=== PATIENT | male | born 1965 | race Hispanic/Latino ===

== ENCOUNTER 2019-08-06 10:17 | Inpatient (IN) | payer SELFPAY ==
[2019-08-06 10:55] LABS: #Basophils 0.1 thou/uL (0.0-0.2); #Eosinphils 0.1 thou/uL (0.0-0.7); #Lymphocytes 2.1 thou/uL (1.20-3.40); #Monocytes 0.7 thou/uL (0.11-0.59); #Neutrophils 3.6 thou/uL (1.40-6.50); %Basophils 0.8 % (0.0-1.0); %Eosinophils 1.9 % (0.0-10.0); %Lymphocytes 31.9 % (21.0-51.0); %Neutrophils 54.3 % (42.0-75.0); Hemoglobin 15.8 g/dL (14.0-18.0); Mean Corpuscular HGB CONC 34.1 g/dL (32.0-36.0); Mean Corpuscular Hemoglobin 33.5 pg (27.0-31.0); Mean Corpuscular Volume 98.2 fL (78.0-98.0); Mean Platelet Volume 9.1 fL (7.4-10.4); Platelet Count 185 thou/uL (130-400); RBC Distribution Width 11.4 % (11.5-14.5); Red Blood Cell (RBC) Count 4.72 mill/uL (4.70-6.10); White Blood Cell (WBC) Count 6.6 thou/uL (4.8-10.8)
[2019-08-06 10:58] LABS: INR-International Normal Ratio 0.9; PTT 26.7 SEC (22.9-36.1); Prothrombin Time 12.1 sec (12.0-14.7)
[2019-08-06] MEDS ORDERED: Morphine 4 MG/ML VIAL ONE ×2 (11:07→12:38)
[2019-08-06 11:22] LABS: ALT (SGPT) 34 U/L (8-55); AST (SGOT) 39 U/L (5-34); Albumin 4.3 g/dL (3.5-5.0); Alkaline Phosphatase 127 U/L (40-110); Anion Gap 14 mmol/L (10-20); BUN (Urea Nitrogen) 6 mg/dL (8.4-25.7); Bilirubin, Total 0.7 mg/dL (0.2-1.2); CK (CPK) 95 U/L (30-200); Calc. Creatinine Clearance 0 mL/min (70-130); Calcium 8.8 mg/dL (7.8-10.44); Carbon Dioxide 24 mmol/L (22-29); Chloride 102 mmol/L (98-107); Estimated GFR-MDRD Greater than 90; Globulin 3.6 g/dL (2.4-3.5); Glucose 220 mg/dL (70-105); Potassium 3.4 mmol/L (3.5-5.1); Protein, Total 7.9 g/dL (6.0-8.3); Sodium 137 mmol/L (136-145)
[2019-08-06 12:13] LABS: Bilirubin Negative (Negative); Blood, Urine Negative (Negative); Glucose, Urine (Dipstick) 100 mg/dL (Negative); Leukocyte Negative (Negative); Nitrite Negative (Negative); Protein, Urine (Dipstick) Negative (Neg-Trace); Urobilinogen 0.2 mg/dL (Less than 2)
[2019-08-06 12:20] LABS: Clarity Clear (Clear)
[2019-08-06] MEDS ORDERED: diphenhydrAMINE 50 MG/ML VIAL IVP PRN (13:45)
[2019-08-06] MEDS ORDERED: Acetaminophen 500 MG TAB PO PRN (13:45)
[2019-08-06] MEDS ORDERED: Ondansetron PF 4 MG/2 ML Vial IVP PRN (13:45)
[2019-08-06] MEDS ORDERED: TETANUS AND DIPHTHERIA TOX/PF 0.5 ML DISP.SYRIN IM ONE (13:45)
[2019-08-06] MEDS ORDERED: HOLD ALL ANTI-COAGULANTS/ANTI-PLATELETS/NSAIDS PO SCH (13:45)
[2019-08-06] MEDS ORDERED: HYDROcodone/Acetaminophen 10/325 mg Tablet PO PRN (14:17)
[2019-08-06] MEDS ORDERED: Lorazepam 2 MG/ML VIAL SLOW IVP PRN (14:22)
[2019-08-06] MEDS ORDERED: Morphine 4 MG/ML VIAL SLOW IVP PRN (14:22)
[2019-08-06] MEDS ORDERED: Lorazepam 2 MG/ML VIAL ONE (14:29)
[2019-08-06] MEDS ORDERED: Labetalol HCl 100 MG/20 ML VIAL ONE (14:29)
[2019-08-06] MEDS ORDERED: Crotalidae Polyvlnt Antivenin 4 GM in Sodium Chloride 0.9% 250 ML 250 ML IVPB SCH (14:30)
--- NOTE | 2019-08-06 14:30 | PDOC.HHP ---
Hospitalist HPI - History of Present Illness Snakebite History of Present Illness: This patient is a 54-year-old male who presented to the emergency department. The patient was pulling some grass this morning when he was bitten on the left fifth finger by a copperhead. That occurred at approximately 1030 this morning. That was about 4 hours ago. Patient initially had some discomfort and swelling in his finger. It has subsequently extended onto the surface of the hand. He therefore presented to the emergency department. Currently he denies significant pain. He does admit that he is very scared and anxious about the situation. He denies any nausea vomiting or neurologic symptoms. ED Course: In the emergency department the patient was deemed to have a moderate level envenomation. He was given 6 units of CroFab. He is also been given morphine a couple of times. He appears to have slight extension of the edema and inflammation be on the originally marked area. Hospitalist ROS - Review of Systems Constitutional: denies: fever, chills Cardiovascular: denies: chest pain, palpitations Gastrointestinal: denies: nausea, vomiting, abdominal pain Neurological: denies: weakness, numbness All other systems reviewed; all pertinent +/- noted in HPI/Subj Hospitalist History - Past Medical History Source: patient (No past medical history) - Past Surgical History Past Surgical History: reports: no pertinent history - Family History Family History: reports: no pertinent history - Social History Smoking Status: Never smoker Alcohol: reports: Occassional (Patient drinks 3-4 beers most days. He states he will go a month at a time without drinking at all.) Drugs: reports: none Living Situation: With Family Activity level: independent ambulation Other Social History: Patient reports he is in [place] but not here. - Exam General Appearance: NAD, awake alert Heart: RRR, no murmur, no gallops Heart - other findings: Tachycardia Respiratory: CTAB, no wheezes, no rales, no ronchi, normal chest expansion, no tachypnea, normal percussion Gastrointestinal: soft, non-tender, non-distended, normal bowel sounds, no palpable masses, no hepatomegaly, no splenomegaly, no bruit Extremities - other findings: Left fifth finger and dorsum of the hand gen. edema. No erythema Skin - other findings: Single puncture wound to the lateral left fifth finger Neurological: no focal deficits Musculoskeletal: normal tone Psychiatric: normal affect, normal behavior, A&O x 3 Hospitalist Results - Labs Result Diagrams: 08/06/19 10:42 08/06/19 10:42 Lab results: WBC 6.6 thou/uL (4.8-10.8) 08/06/19 10:42 Hgb 15.8 g/dL (14.0-18.0) 08/06/19 10:42 Hct 46.4 % (42.0-52.0) 08/06/19 10:42 MCV 98.2 fL (78.0-98.0) H 08/06/19 10:42 Plt Count 185 thou/uL (130-400) 08/06/19 10:42 Neutrophils % 54.3 % (42.0-75.0) 08/06/19 10:42 Sodium 137 mmol/L (136-145) 08/06/19 10:42 Potassium 3.4 mmol/L (3.5-5.1) L 08/06/19 10:42 Chloride 102 mmol/L (98-107) 08/06/19 10:42 Carbon Dioxide 24 mmol/L (22-29) 08/06/19 10:42 BUN 6 mg/dL (8.4-25.7) L 08/06/19 10:42 Creatinine 0.80 mg/dL (0.7-1.3) 08/06/19 10:42 Glucose 220 mg/dL (70-105) H 08/06/19 10:42 Calcium 8.8 mg/dL (7.8-10.44) 08/06/19 10:42 Total Bilirubin 0.7 mg/dL (0.2-1.2) 08/06/19 10:42 AST 39 U/L (5-34) H 08/06/19 10:42 ALT 34 U/L (8-55) 08/06/19 10:42 Alkaline Phosphatase 127 U/L (40-110) H 08/06/19 10:42 Creatine Kinase 95 U/L (30-200) 08/06/19 10:42 Serum Total Protein 7.9 g/dL (6.0-8.3) 08/06/19 10:42 Albumin 4.3 g/dL (3.5-5.0) 08/06/19 10:42 Urine Ketones Negative mg/dL (Negative) 08/06/19 11:35 Urine Blood Negative (Negative) 08/06/19 11:35 Urine Nitrite Negative (Negative) 08/06/19 11:35 Ur Leukocyte Esterase Negative (Negative) 08/06/19 11:35 Hospitalist H&P A/P - Problem (1) Snake envenomation Code(s): T63.001A - TOXIC EFFECT OF UNSP SNAKE VENOM, ACCIDENTAL, INIT Status : Acute (2) Elevated blood pressure, situational Code(s): R03.0 - ELEVATED BLOOD-PRESSURE READING, W/O DIAGNOSIS OF HTN Status : Acute (3) Tachycardia Code(s): R00.0 - TACHYCARDIA, UNSPECIFIED Status: Acute - Plan Plan: This patient was started on the CroFab in the emergency department. Based on the guidelines he was deemed to have a moderate envenomation and was given 6 vials. We will continue with the snakebite order set. The patient is admittedly very scared and anxious about the situation. I believe that is driving his blood pressure and his heart rate. Have discussed with the ER physician. Asked him to order Lorazepam and labetalol. I suspect we will be able to get the blood pressure down and place him on telemetry and observation. We will continue with PRN anxiolytics and opioids for pain.
[2019-08-06] MEDS ORDERED: Ketorolac Tromethamine 30 MG/ML VIAL ONE (16:21)
[2019-08-06 17:34] VITALS: BMI 29.5
[2019-08-06] MEDS: Famotidine 20 MG TAB PO SCH (20:47)
[2019-08-06] MEDS ORDERED: Ketorolac Tromethamine 30 MG/ML VIAL IVP SCH (23:59)
[2019-08-07 04:32] LABS: #Basophils 0.1 thou/uL (0.0-0.2); #Eosinphils 0.3 thou/uL (0.0-0.7); #Lymphocytes 1.4 thou/uL (1.20-3.40); #Monocytes 0.7 thou/uL (0.11-0.59); %Basophils 0.7 % (0.0-1.0); %Eosinophils 3.5 % (0.0-10.0); %Lymphocytes 18.8 % (21.0-51.0); %Monocytes 8.9 % (0.0-10.0); %Neutrophils 68.1 % (42.0-75.0); Hemoglobin 14.4 g/dL (14.0-18.0); Mean Corpuscular HGB CONC 33.1 g/dL (32.0-36.0); Mean Corpuscular Hemoglobin 33.4 pg (27.0-31.0); Mean Platelet Volume 9.2 fL (7.4-10.4); Platelet Count 183 thou/uL (130-400); RBC Distribution Width 11.5 % (11.5-14.5); Red Blood Cell (RBC) Count 4.32 mill/uL (4.70-6.10); White Blood Cell (WBC) Count 7.3 thou/uL (4.8-10.8)
[2019-08-07 04:39] LABS: PTT 28.3 SEC (22.9-36.1); Prothrombin Time 12.8 sec (12.0-14.7)
[2019-08-07] MEDS: Gentamicin Sulfate 80 MG in Premix Bag 1 BAG IVPB SCH ×3 (06:14→20:16)
[2019-08-07] MEDS: Vancomycin 1.5 GRAM/300 ML BAG 1.5 GM in Premix Bag 1 BAG IVPB SCH ×2 (07:26→17:31)
[2019-08-07] MEDS ORDERED: diphenhydrAMINE 25 MG CAP PO PRN (08:01)
--- NOTE | 2019-08-07 08:46 | PDOC.HOSPP ---
- Subjective Encounter Date: 08/07/19 Encounter Time: 08:15 Subjective: Patient seen and examined for Snake bite to Left hand. Pain 5/10. Swelling improving. No fever/N/V. No new complaints. No overnight events - Objective Vital Signs & Weight: Vital Signs (12 hours) Temp Pulse Resp BP Pulse Ox 08/07/19 04:00 98.7 F 80 16 150/71 H 95 08/07/19 00:00 98.6 F 78 18 152/90 H 96 Weight Weight 183 lb Result Diagrams: 08/07/19 04:15 08/06/19 10:42 EKG Reviewed by me: Yes (Tele SR) Hospitalist ROS - Review of Systems Respiratory: denies: cough, dry, shortness of breath, hemoptysis, SOB with excertion, pleuritic pain, sputum, wheezing, other Cardiovascular: denies: chest pain, palpitations, orthopnea, paroxysmal noc. dyspnea, edema, light headedness, other Gastrointestinal: denies: nausea, vomiting, abdominal pain, diarrhea, constipation, melena, hematochezia, other - Medication Medications: Active Medications Generic Name Dose Route Start Last Admin Trade Name Freq PRN Reason Stop Dose Admin Famotidine 20 mg 08/06/19 21:00 08/06/19 20:47 Pepcid PO 20 mg BID ADOLPH Administration Vancomycin HCl 1.5 gm/ Device 300 mls @ 200 mls/hr 08/07/19 06:00 08/07/19 07 :26 IVPB 300 mls 0600,1800 ADOLPH Administration Gentamicin Sulfate 80 mg/ 100 mls @ 100 mls/hr 08/07/19 06:00 08/07/19 06:14 Device IVPB 100 mls Q8HR ADOLPH Administration - Exam General Appearance: NAD Heart: RRR, no gallops, no rubs, normal peripheral pulses Respiratory: no wheezes, no rales, no ronchi, normal chest expansion Gastrointestinal: soft, non-tender, non-distended, normal bowel sounds Extremities: no cyanosis Extremities - other findings: Left hand dressing +, ROM ok Neurological: cranial nerve grossly intact, normal sensation to touch, no weakness, no new deficit Psychiatric: normal affect, A&O x 3 Hosp A/P - Plan DVT proph w/SCDs Snake envenomation/bite to left hand Left hand cellulitis due to above Acute pain/Elevated BP/tachycardia due to above Hypokalemia Chronic alcohol use - counselled PLAN: s/p Antivenin in ER Cont IV Atbx Pain control Cont IVF Replace Potassium Add Thiamine/MVM/Folic acid Dr Rocha's input appreciated Transfer to [facility]
[2019-08-07] MEDS: Multivit, Therapeutic 1 TAB PO SCH (09:00)
[2019-08-07] MEDS: Thiamine 100 MG TAB PO SCH (09:00)
[2019-08-07] MEDS: Folic Acid 1 MG TAB PO SCH (09:00)
[2019-08-07] MEDS: Magnesium Chloride 64 MG TAB PO SCH ×2 (09:00→20:16)
[2019-08-07] MEDS: Loratadine 10 MG TAB PO SCH (09:00)
[2019-08-07] MEDS: Famotidine 20 MG TAB PO SCH ×2 (09:01→20:15)
[2019-08-07] MEDS: cloNIDine 0.1 MG TAB PO PRN ×2 (11:08→20:15)
[2019-08-07] MEDS: Potassium Chloride 20 MEQ TAB PO SCH (17:30)
[2019-08-07] MEDS: Carvedilol 3.125 MG TAB PO SCH (17:31)
[2019-08-07] MEDS ORDERED: Saccharomyces boulardii 250 MG CAP PO SCH (21:00)
[2019-08-08] MEDS: Gentamicin Sulfate 80 MG in Premix Bag 1 BAG IVPB SCH ×2 (04:57→13:49)
[2019-08-08] MEDS: Vancomycin 1.5 GRAM/300 ML BAG 1.5 GM in Premix Bag 1 BAG IVPB SCH (04:57)
[2019-08-08 05:49] LABS: #Eosinphils 0.2 thou/uL (0.0-0.7); #Lymphocytes 1.4 thou/uL (1.20-3.40); #Monocytes 0.8 thou/uL (0.11-0.59); #Neutrophils 5.1 thou/uL (1.40-6.50); %Basophils 0.6 % (0.0-1.0); %Lymphocytes 18.7 % (21.0-51.0); %Monocytes 10.5 % (0.0-10.0); %Neutrophils 67.2 % (42.0-75.0); Hemoglobin 14.5 g/dL (14.0-18.0); Mean Corpuscular HGB CONC 33.1 g/dL (32.0-36.0); Mean Corpuscular Hemoglobin 33.4 pg (27.0-31.0); Mean Platelet Volume 9.5 fL (7.4-10.4); Platelet Count 190 thou/uL (130-400); RBC Distribution Width 11.6 % (11.5-14.5); Red Blood Cell (RBC) Count 4.33 mill/uL (4.70-6.10); White Blood Cell (WBC) Count 7.7 thou/uL (4.8-10.8)
[2019-08-08 05:58] LABS: Anion Gap 12 mmol/L (10-20); BUN (Urea Nitrogen) 11 mg/dL (8.4-25.7); Calc. Creatinine Clearance 129 mL/min (70-130); Calcium 8.8 mg/dL (7.8-10.44); Carbon Dioxide 23 mmol/L (22-29); Chloride 108 mmol/L (98-107); Estimated GFR-MDRD Greater than 90; Glucose 112 mg/dL (70-105); Magnesium 2.2 mg/dL (1.6-2.6); Sodium 139 mmol/L (136-145)
[2019-08-08] MEDS: Carvedilol 3.125 MG TAB PO SCH (08:23)
[2019-08-08] MEDS: Loratadine 10 MG TAB PO SCH (08:23)
[2019-08-08] MEDS: Potassium Chloride 20 MEQ TAB PO SCH (08:23)
[2019-08-08] MEDS: Folic Acid 1 MG TAB PO SCH (08:24)
[2019-08-08] MEDS: Magnesium Chloride 64 MG TAB PO SCH (08:24)
[2019-08-08] MEDS: Famotidine 20 MG TAB PO SCH (08:24)
[2019-08-08] MEDS: Multivit, Therapeutic 1 TAB PO SCH (08:24)
[2019-08-08] MEDS: Thiamine 100 MG TAB PO SCH (08:24)
[2019-08-08] MEDS ORDERED: Carvedilol 6.25 MG TAB PO SCH ×2 (11:00→17:00)
[2019-08-08] MEDS: cloNIDine 0.1 MG TAB PO PRN (12:40)
[2019-08-08] MEDS ORDERED: Labetalol HCl 100 MG/20 ML VIAL SLOW IVP PRN (13:58)
[2019-08-08] MEDS ORDERED: cloNIDine 0.1 MG TAB PO SCH (14:00)
[2019-08-08] MEDS ORDERED: Labetalol HCl 100 MG/20 ML VIAL SLOW IVP SCH (14:00)
[2019-08-08 16:20] VITALS: BP 166/98; TEMP 97.8
--- NOTE | 2019-08-09 06:14 | DIS ---
DATE OF ADMISSION: 08/06/2019 DATE OF DISCHARGE: 08/08/2019 DISCHARGE DISPOSITION: Home. FOLLOWUP: Follow up with [facility] in 1 week. DISCHARGE MEDICATIONS: 1. Clindamycin 150 mg 3 times daily for next 5 days. 2. Carvedilol 3.125 mg b.i.d. 3. Multivitamin, thiamine, and folic acid were started. The patient was seen on the day of discharge. Denies any new complaints. No fever or chills reported. Pain is controlled. BRIEF HOSPITAL COURSE: The patient is a 54-year-old male, who presented to the emergency room after a snake bite to his left fifth finger around 10:30 a.m., on August 06, 2019. He had significant swelling along with discomfort. He was started on CroFab in the emergency room. He also received antihypertensives due to elevated blood pressure in the emergency room. Please refer to the history and physical for further details. The patient was admitted to the hospital with the above diagnosis. He was started on empiric antibiotics and was also evaluated by hand surgeon, Dr. Rocha. Left hand swelling has significantly improved. Antibiotics will be changed to clindamycin per Dr. Rocha. He was started on antihypertensives at low dosages. I think his blood pressure was uncontrolled probably due to anxiety and pain. FINAL DIAGNOSES: 1. Snake moderate envenomation, status post CroFab. 2. Snake bite to the left little/fifth finger with cellulitis. 3. Acute pain and elevated blood pressure with tachycardia secondary to above. 4. Hypokalemia. 5. Chronic alcohol abuse. 6. Macrocytosis. The patient has been started on multivitamins. The patient understands the above plan of care. Job ID: [id number]
== END 2019-08-08 16:40 | disposition home or self-care (01) | DRG 918 ==
LOC: ERS 10:17 → 2SE 14:22 → OBSVTOIN 14:22 → T4-A 08-07 12:13
PROVIDERS: ADMIT Internal Medicine; ATTEND Internal Medicine
PROC: 3E0234Z Introduction of Serum, Toxoid and Vaccine into Muscle, Percutaneous Approach (ICD-10-PCS; principal; 2019-08-06)
DX: T63.001A Toxic effect of unspecified snake venom, accidental (unintentional), initial encounter (principal); L03.012 Cellulitis of left finger; R00.0 Tachycardia, unspecified; R03.0 Elevated blood-pressure reading, without diagnosis of hypertension; E87.6 Hypokalemia; F10.10 Alcohol abuse, uncomplicated; F41.9 Anxiety disorder, unspecified; D75.89 Other specified diseases of blood and blood-forming organs; Z23 Encounter for immunization
CPT/HCPCS: 36415; 80048; 80053; 81003; 82550; 83735; 85025; 85384; 85610; 85652; 85730; 86850; 86900; 86901; 90714; 93005; J0840; J1580; J1885; J2060; J2270; J3370; J7050

== ENCOUNTER 2021-07-25 13:53 | Inpatient (IN) | payer SELFPAY ==
[2021-07-25 14:10] LABS: #Lymphocytes 1.5 thou/uL (1.20-3.40); #Monocytes 0.7 thou/uL (0.11-0.59); #Neutrophils 5.2 thou/uL (1.40-6.50); %Basophils 0.4 % (0.0-1.0); %Eosinophils 0.1 % (0.0-10.0); %Lymphocytes 20.1 % (21.0-51.0); %Monocytes 9.1 % (0.0-10.0); %Neutrophils 70.3 % (42.0-75.0); Hemoglobin 15.3 g/dL (14.0-18.0); Mean Corpuscular Hemoglobin 34.3 pg (27.0-31.0); Mean Platelet Volume 8.6 fL (7.4-10.4); Platelet Count 214 thou/uL (130-400); RBC Distribution Width 11.2 % (11.5-14.5); Red Blood Cell (RBC) Count 4.47 mill/uL (4.70-6.10); White Blood Cell (WBC) Count 7.3 thou/uL (4.8-10.8)
[2021-07-25 14:32] LABS: ALT (SGPT) 31 U/L (8-55); AST (SGOT) 80 U/L (5-34); Acetaminophen Less than 10.0 mcg/mL (10.0-30.0); Albumin 4.6 g/dL (3.5-5.0); Alcohol Less than 10 mg/dL (Less than 10); Alkaline Phosphatase 88 U/L (40-110); Anion Gap 13 mmol/L (10-20); BUN (Urea Nitrogen) 6 mg/dL (8.4-25.7); Bilirubin, Total 0.8 mg/dL (0.2-1.2); CK (CPK) 1209 U/L (30-200); Calc. Creatinine Clearance 0 mL/min (70-130); Calcium 8.9 mg/dL (7.8-10.44); Carbon Dioxide 29 mmol/L (22-29); Chloride 100 mmol/L (98-107); Globulin 3.6 g/dL (2.4-3.5); Glucose 166 mg/dL (70-105); Protein, Total 8.2 g/dL (6.0-8.3); Salicylate Less than 8.0 mg/dL (15.0-30.0); Sodium 139 mmol/L (136-145)
[2021-07-25 14:54] LABS: Bacteria/HPF None Seen HPF (None Seen); Bilirubin Negative (Negative); Blood, Urine 1+ (Negative); Clarity Clear (Clear); Glucose, Urine (Dipstick) Normal (Negative); Ketone, Urine 20 mg/dL (Negative); Leukocyte Negative Leu/uL (Negative); Nitrite Negative (Negative); Protein, Urine (Dipstick) 30 mg/dL (Neg-Trace); Specific Gravity, Urine 1.012 (1.002-1.036); Squamous Epithelial None Seen HPF (0-3); Urobilinogen Normal mg/dL (Less than 2); pH, Urine 6.5 (5.0-9.0)
[2021-07-25 15:02] LABS: Amphetamine Not Detected (NotDetected); Barbiturates Screen Not Detected (NotDetected); Benzodiazepine Screen Not Detected (NotDetected); Cocaine Metabolite Screen Not Detected (NotDetected); Methadone Not Detected (NotDetected); Methamphetamine Not Detected (NotDetected); Opiate Screen Not Detected (NotDetected); Oxycodone Screen Not Detected (NotDetected); Phencyclidine (PCP) Not Detected (NotDetected); THC/Cannabinoid Screen Not Detected (NotDetected); Tricyclic Screen Not Detected (NotDetected)
[2021-07-25] MEDS ORDERED: Nitroglycerin 0.4 MG TAB (25 Tab Bottle) SL PRN (16:33)
[2021-07-25] MEDS ORDERED: Lorazepam 2 MG/ML VIAL ONE (16:48)
[2021-07-25] MEDS ORDERED: Aspirin 325 MG TAB ONE (16:49)
[2021-07-25] MEDS ORDERED: Potassium Chloride 20 MEQ TAB PO SCH (17:00)
[2021-07-25 17:06] LABS: Hemoglobin A1c 5.9 % (4.0-6.0)
[2021-07-25 17:22] LABS: Troponin I 0.035 ng/mL (< 0.028)
[2021-07-25] MEDS ORDERED: Ondansetron ODT 4 MG TAB PO PRN (17:48)
[2021-07-25 17:53] VITALS: BMI 25.2
[2021-07-25] MEDS ORDERED: Electrolyte Replacement Protocol FS PRN (18:00)
[2021-07-25] MEDS ORDERED: Multivit, Therapeutic 1 TAB PO SCH (18:00)
[2021-07-25] MEDS ORDERED: Electrolyte Replacement Protocol 1 EACH FS SCH (18:00)
[2021-07-25] MEDS: Lactated Ringer's 1,000 ML IV SCH (18:02)
[2021-07-25] MEDS: Thiamine HCl 200 MG/2 ML VIAL SLOW IVP SCH (18:09)
[2021-07-25] MEDS: chlordiazePOXIDE HCl 25 MG CAP PO SCH (18:39)
[2021-07-25] MEDS: Acetaminophen 325 MG TAB PO PRN (18:43)
[2021-07-25 20:04] LABS: Troponin I 0.042 ng/mL (< 0.028)
[2021-07-25] MEDS ORDERED: Melatonin 3 MG TAB PO PRN (23:24)
[2021-07-26] MEDS: Acetaminophen 325 MG TAB PO PRN (00:21)
[2021-07-26] MEDS: chlordiazePOXIDE HCl 25 MG CAP PO SCH ×4 (00:21→18:50)
[2021-07-26] MEDS: Lorazepam 1 MG TAB PO PRN ×3 (00:29→06:35)
[2021-07-26] MEDS: Lactated Ringer's 1,000 ML IV SCH (03:16)
[2021-07-26 04:32] LABS: #Lymphocytes 2.1 thou/uL (1.20-3.40); #Monocytes 0.8 thou/uL (0.11-0.59); #Neutrophils 4.5 thou/uL (1.40-6.50); %Basophils 0.3 % (0.0-1.0); %Eosinophils 0.6 % (0.0-10.0); %Lymphocytes 27.9 % (21.0-51.0); %Monocytes 10.4 % (0.0-10.0); %Neutrophils 60.8 % (42.0-75.0); Hemoglobin 12.7 g/dL (14.0-18.0); Mean Corpuscular HGB CONC 35.1 g/dL (32.0-36.0); Mean Corpuscular Hemoglobin 35.9 pg (27.0-31.0); Mean Platelet Volume 8.6 fL (7.4-10.4); Platelet Count 147 thou/uL (130-400); RBC Distribution Width 11.2 % (11.5-14.5); Red Blood Cell (RBC) Count 3.54 mill/uL (4.70-6.10); White Blood Cell (WBC) Count 7.4 thou/uL (4.8-10.8)
[2021-07-26 04:58] LABS: ALT (SGPT) 22 U/L (8-55); AST (SGOT) 57 U/L (5-34); Albumin 3.5 g/dL (3.5-5.0); Alkaline Phosphatase 68 U/L (40-110); Anion Gap 11 mmol/L (10-20); BUN (Urea Nitrogen) 5 mg/dL (8.4-25.7); Bilirubin, Total 0.9 mg/dL (0.2-1.2); Calc. Creatinine Clearance 56 mL/min (70-130); Calcium 8.3 mg/dL (7.8-10.44); Carbon Dioxide 27 mmol/L (22-29); Cardiac Risk 2.4 (Less than 4.5); Chloride 102 mmol/L (98-107); Cholesterol 176 mg/dl (< 200 Desired); Globulin 2.8 g/dL (2.4-3.5); Glucose 134 mg/dL (70-105); HDL Cholesterol 73 mg/dL (>60 Neg Risk); LDL Cholesterol, Calculated 86 mg/dL; Potassium 3.1 mmol/L (3.5-5.1); Protein, Total 6.3 g/dL (6.0-8.3); Sodium 137 mmol/L (136-145); Triglycerides 85 mg/dL (Less than 150)
[2021-07-26] MEDS ORDERED: Potassium Chloride 20 MEQ TAB PO SCH (05:45)
[2021-07-26] MEDS ORDERED: Magnevist 469MG/ML 20 ML VIAL ONE (09:19)
[2021-07-26] MEDS: Folic Acid 1 MG TAB PO SCH (09:30)
[2021-07-26] MEDS: Enoxaparin Sodium 40 MG/0.4 ML SYRINGE SC SCH (09:30)
[2021-07-26] MEDS: Multivit, Therapeutic 1 TAB PO SCH (09:30)
[2021-07-26 12:19] LABS: SARS-CoV-2 PCR by NAA Not Detected (NotDetected)
[2021-07-26] MEDS ORDERED: Lorazepam 1 MG TAB PO PRN (17:48)
[2021-07-26] MEDS: Thiamine HCl 200 MG/2 ML VIAL SLOW IVP SCH (18:50)
[2021-07-26] MEDS ORDERED: Atorvastatin Calcium 40 MG TAB PO SCH (21:00)
[2021-07-26] MEDS ORDERED: hydrALAZINE 20 MG/ML VIAL SLOW IVP PRN (23:17)
[2021-07-27 04:34] LABS: Anion Gap 10 mmol/L (10-20); BUN (Urea Nitrogen) 6 mg/dL (8.4-25.7); Calc. Creatinine Clearance 63 mL/min (70-130); Carbon Dioxide 28 mmol/L (22-29); Chloride 103 mmol/L (98-107); Glucose 111 mg/dL (70-105); Potassium 3.3 mmol/L (3.5-5.1); Sodium 138 mmol/L (136-145)
[2021-07-27] MEDS ORDERED: Potassium Chloride 20 MEQ TAB PO SCH (05:00)
[2021-07-27] MEDS ORDERED: Lisinopril 5 MG TAB PO SCH (09:00)
[2021-07-27] MEDS ORDERED: chlordiazePOXIDE HCl 25 MG CAP PO SCH (09:00)
[2021-07-27] MEDS ORDERED: Amlodipine 5 MG TAB PO SCH (09:00)
[2021-07-27] MEDS: Enoxaparin Sodium 40 MG/0.4 ML SYRINGE SC SCH (10:17)
[2021-07-27] MEDS: Folic Acid 1 MG TAB PO SCH (10:17)
[2021-07-27] MEDS: Multivit, Therapeutic 1 TAB PO SCH (10:18)
[2021-07-27 11:42] VITALS: BP 150/80; TEMP 97.8
[2021-07-27] MEDS ORDERED: Lorazepam 1 MG TAB PO PRN (17:48)
[2021-07-28] MEDS ORDERED: Thiamine 100 MG TAB PO SCH (09:00)
[2021-07-28] MEDS ORDERED: Lorazepam 0.5 MG TAB PO PRN (17:48)
== END 2021-07-27 12:21 | disposition home or self-care (01) | DRG 896 ==
LOC: ERS 13:53 → 2NO 15:59
PROVIDERS: ADMIT Family Medicine; ATTEND Family Medicine
DX: F10.139 Alcohol abuse with withdrawal, unspecified (principal); G93.41 Metabolic encephalopathy; M62.82 Rhabdomyolysis; I24.8 Other forms of acute ischemic heart disease; E87.6 Hypokalemia; R73.03 Prediabetes; Z20.822 Contact with and (suspected) exposure to COVID-19
CPT/HCPCS: 36415; 51701; 70450; 70553; 80048; 80053; 80061; 80306; 80307; 81003; 81015; 82550; 82553; 83036; 83605; 84443; 84484; 85025; 87040; 87086; 93005; 96374; A9579; J1650; J2060; J3411; J7120; Q0162; U0003; U0005

== ENCOUNTER 2022-10-05 20:35 | Inpatient (IN) | payer OTHER, SELFPAY ==
[~2022-10-05 20:35] MED LIST: Iopamidol-370 76% 500 ML MDV (1 ML CHARGE) ONE
[2022-10-05 21:21] LABS: #Monocytes 0.8 thou/uL (0.11-0.59); #Neutrophils 5.2 thou/uL (1.40-6.50); %Basophils 0.3 % (0.0-1.0); %Monocytes 9.8 % (0.0-10.0); %Neutrophils 60.7 % (42.0-75.0); Hemoglobin 14.9 g/dL (14.0-18.0); Mean Corpuscular HGB CONC 35.3 g/dL (32.0-36.0); Mean Corpuscular Hemoglobin 33.4 pg (27.0-31.0); Mean Corpuscular Volume 94.6 fl (78.0-98.0); Mean Platelet Volume 10.6 fL (7.4-10.4); Platelet Count 282 10x3/uL (130-400); RBC Distribution Width 12.3 % (11.5-14.5); Red Blood Cell (RBC) Count 4.46 mill/uL (4.70-6.10); White Blood Cell (WBC) Count 8.6 10x3/uL (4.8-10.8)
[2022-10-05 21:42] LABS: Acetaminophen Less than 10 mcg/mL (10.0-30.0); Alcohol Less than 10.0 mg/dL (Less than 10); Salicylate Less than 8.0 mg/dL (15.0-30.0)
[2022-10-05 21:45] LABS: ALT (SGPT) 19 U/L (8-55); AST (SGOT) 41 U/L (5-34); Albumin 4.3 g/dL (3.5-5.0); Alkaline Phosphatase 88 U/L (40-110); Anion Gap 15 mmol/L (10-20); BUN (Urea Nitrogen) 8 mg/dL (8.4-25.7); Bilirubin, Total 0.7 mg/dL (0.2-1.2); Calc. Creatinine Clearance 0 mL/min (70-130); Calcium 8.6 mg/dL (7.8-10.44); Carbon Dioxide 27 mmol/L (22-29); Chloride 99 mmol/L (98-107); Estimated GFR 100; Globulin 3.2 g/dL (2.4-3.5); Glucose 134 mg/dL (70-105); Lipase 23 U/L (8-78); Potassium 3.5 mmol/L (3.5-5.1); Protein, Total 7.5 g/dL (6.0-8.3); Sodium 137 mmol/L (136-145)
[2022-10-05 22:05] LABS: Amphetamine Not Detected (NotDetected); Barbiturates Screen Not Detected (NotDetected); Benzodiazepine Screen Not Detected (NotDetected); Cocaine Metabolite Screen Not Detected (NotDetected); Methadone Not Detected (NotDetected); Methamphetamine Not Detected (NotDetected); Opiate Screen Not Detected (NotDetected); Oxycodone Screen Not Detected (NotDetected); Phencyclidine (PCP) Not Detected (NotDetected); THC/Cannabinoid Screen Not Detected (NotDetected); Tricyclic Screen Not Detected (NotDetected)
[2022-10-05 22:19] LABS: CKMB 2.4 ng/mL (0-6.6)
[2022-10-05] MEDS ORDERED: Nitroglycerin 0.4 MG TAB (25 Tab Bottle) SL PRN (23:24)
[2022-10-05] MEDS ORDERED: Ondansetron ODT 4 MG TAB PO PRN ×2 (23:27→23:36)
[2022-10-05] MEDS ORDERED: Lorazepam 2 MG/ML VIAL IM PRN (23:27)
[2022-10-05] MEDS ORDERED: Aspirin 325 MG TAB PO SCH (23:30)
[2022-10-05] MEDS ORDERED: Electrolyte Replacement Protocol 1 EACH FS SCH (23:30)
[2022-10-05] MEDS ORDERED: Electrolyte Replacement Protocol 1 EACH FS ONE (23:33)
[2022-10-05] MEDS ORDERED: Ondansetron PF 4 MG/2 ML Vial IVP PRN (23:36)
[2022-10-05] MEDS ORDERED: Calcium Carbonate 500 MG ChewTAB PO PRN (23:36)
[2022-10-05] MEDS ORDERED: Acetaminophen 650 MG Suppository PR PRN (23:36)
[2022-10-05] MEDS: Thiamine HCl 200 MG/2 ML VIAL SLOW IVP SCH (23:42)
[2022-10-05] MEDS ORDERED: Lidocaine 2% Viscous Solution 10 ML, Aluminum & Magnesium Hydroxide 30 ML SSW SCH (23:45)
[2022-10-05] MEDS ORDERED: Potassium Chloride 20 MEQ TAB PO SCH (23:45)
[2022-10-05 23:59] VITALS: BMI 31.4
[2022-10-05] MEDS ORDERED: Multivitamins, Adult 10 ML, Folic Acid 1 MG, Thiamine HCl 100 MG in Dextrose 5 %-0.45 %... IV SCH (23:59)
[2022-10-06] MEDS ORDERED: Nitroglycerin 2% Ointment 1 INCH/1 GM Packet TOP SCH (00:45)
[2022-10-06] MEDS: Lorazepam 1 MG TAB PO PRN ×4 (00:47→20:03)
[2022-10-06 01:05] LABS: Phosphorus 2.5 mg/dL (2.3-4.7)
[2022-10-06] MEDS ORDERED: chlordiazePOXIDE HCl 25 MG CAP PO SCH ×2 (01:15→09:00)
[2022-10-06 01:17] LABS: Critical Call Chem Troponin I RESULT DECREASING; Troponin I 1.955 ng/mL (< 0.028)
[2022-10-06 03:44] LABS: #Neutrophils 6.7 thou/uL (1.40-6.50); %Basophils 0.3 % (0.0-1.0); %Monocytes 10.4 % (0.0-10.0); Hemoglobin 13.2 g/dL (14.0-18.0); Mean Corpuscular HGB CONC 35.2 g/dL (32.0-36.0); Mean Corpuscular Hemoglobin 33.7 pg (27.0-31.0); Mean Corpuscular Volume 95.7 fl (78.0-98.0); Mean Platelet Volume 10.5 fL (7.4-10.4); Platelet Count 213 10x3/uL (130-400); RBC Distribution Width 12.5 % (11.5-14.5); Red Blood Cell (RBC) Count 3.92 mill/uL (4.70-6.10); White Blood Cell (WBC) Count 9.5 10x3/uL (4.8-10.8)
[2022-10-06 04:07] LABS: ALT (SGPT) 15 U/L (8-55); AST (SGOT) 33 U/L (5-34); Albumin 3.6 g/dL (3.5-5.0); Alkaline Phosphatase 71 U/L (40-110); Anion Gap 13 mmol/L (10-20); BUN (Urea Nitrogen) 8 mg/dL (8.4-25.7); Bilirubin, Total 0.7 mg/dL (0.2-1.2); Calc. Creatinine Clearance 76 mL/min (70-130); Carbon Dioxide 25 mmol/L (22-29); Chloride 104 mmol/L (98-107); Estimated GFR 76; Globulin 2.7 g/dL (2.4-3.5); Glucose 130 mg/dL (70-105); Potassium 3.5 mmol/L (3.5-5.1); Protein, Total 6.3 g/dL (6.0-8.3); Sodium 138 mmol/L (136-145)
[2022-10-06 04:13] LABS: Troponin I 2.317 ng/mL (< 0.028)
[2022-10-06] MEDS: Nitroglycerin 2% Ointment 1 INCH/1 GM Packet TOP SCH ×3 (05:40→22:43)
[2022-10-06] MEDS ORDERED: Magnesium 2 GM/50 ML(in water) 2 GM in Premix Bag 1 BAG IVPB SCH (08:00)
[2022-10-06] MEDS: Multivit, Therapeutic 1 TAB PO SCH (09:00)
[2022-10-06] MEDS: Lisinopril 5 MG TAB PO SCH (09:00)
[2022-10-06] MEDS: Famotidine 20 MG TAB PO SCH ×2 (09:00→20:03)
[2022-10-06] MEDS: Folic Acid 1 MG TAB PO SCH (09:00)
[2022-10-06] MEDS ORDERED: Pantoprazole 40 MG VIAL IVP SCH (09:00)
[2022-10-06] MEDS: Aspirin Chewable 81 MG TAB PO SCH (09:00)
[2022-10-06] MEDS: Potassium Chloride 20 MEQ in Premix Bag 1 BAG IVPB SCH ×2 (09:01→10:58)
[2022-10-06] MEDS: Acetaminophen 325 MG TAB PO PRN (09:04)
[2022-10-06] MEDS ORDERED: chlordiazePOXIDE HCl 25 MG CAP PO PRN (10:38)
[2022-10-06] MEDS: Atorvastatin Calcium 40 MG TAB PO SCH (20:03)
[2022-10-06] MEDS: Thiamine HCl 200 MG/2 ML VIAL SLOW IVP SCH (22:43)
[2022-10-06] MEDS ORDERED: Lorazepam 1 MG TAB PO PRN (23:27)
[2022-10-07] MEDS: Nitroglycerin 2% Ointment 1 INCH/1 GM Packet TOP SCH ×3 (06:36→23:12)
[2022-10-07] MEDS: Famotidine 20 MG TAB PO SCH ×2 (08:40→20:17)
[2022-10-07] MEDS: Aspirin Chewable 81 MG TAB PO SCH (08:40)
[2022-10-07] MEDS: Folic Acid 1 MG TAB PO SCH (08:40)
[2022-10-07] MEDS: Multivit, Therapeutic 1 TAB PO SCH (08:40)
[2022-10-07] MEDS: Lisinopril 5 MG TAB PO SCH (08:40)
[2022-10-07 08:47] LABS: Anion Gap 13 mmol/L (10-20); BUN (Urea Nitrogen) 9 mg/dL (8.4-25.7); Calc. Creatinine Clearance 75 mL/min (70-130); Calcium 8.6 mg/dL (7.8-10.44); Carbon Dioxide 25 mmol/L (22-29); Chloride 104 mmol/L (98-107); Estimated GFR 74; Glucose 167 mg/dL (70-105); Potassium 3.7 mmol/L (3.5-5.1); Sodium 138 mmol/L (136-145)
[2022-10-07] MEDS: Atorvastatin Calcium 40 MG TAB PO SCH (20:17)
[2022-10-07] MEDS: Thiamine HCl 200 MG/2 ML VIAL SLOW IVP SCH (23:12)
[2022-10-07] MEDS ORDERED: Lorazepam 1 MG TAB PO PRN (23:27)
[2022-10-07] MEDS ORDERED: Labetalol HCl 100 MG/20 ML VIAL SLOW IVP PRN (23:51)
[2022-10-07] MEDS ORDERED: hydrALAZINE 20 MG/ML VIAL SLOW IVP PRN (23:51)
[2022-10-08] MEDS: Nitroglycerin 2% Ointment 1 INCH/1 GM Packet TOP SCH ×3 (05:16→23:12)
[2022-10-08 07:00] LABS: #Basophils 0.1 thou/uL (0.0-0.2); #Eosinphils 0.2 thou/uL (0.0-0.7); #Monocytes 0.7 thou/uL (0.11-0.59); #Neutrophils 4.3 thou/uL (1.40-6.50); %Basophils 0.8 % (0.0-1.0); %Eosinophils 3.4 % (0.0-10.0); %Lymphocytes 18.7 % (21.0-51.0); %Monocytes 11.3 % (0.0-10.0); %Neutrophils 65.6 % (42.0-75.0); Hemoglobin 14.2 g/dL (14.0-18.0); Mean Corpuscular HGB CONC 34.9 g/dL (32.0-36.0); Mean Corpuscular Hemoglobin 33.8 pg (27.0-31.0); Mean Corpuscular Volume 96.9 fl (78.0-98.0); Mean Platelet Volume 10.7 fL (7.4-10.4); Platelet Count 169 10x3/uL (130-400); RBC Distribution Width 11.9 % (11.5-14.5); White Blood Cell (WBC) Count 6.5 10x3/uL (4.8-10.8)
[2022-10-08 07:24] LABS: Anion Gap 13 mmol/L (10-20); BUN (Urea Nitrogen) 11 mg/dL (8.4-25.7); Calc. Creatinine Clearance 95 mL/min (70-130); Calcium 8.9 mg/dL (7.8-10.44); Carbon Dioxide 27 mmol/L (22-29); Chloride 104 mmol/L (98-107); Estimated GFR 100; Glucose 101 mg/dL (70-105); Potassium 3.4 mmol/L (3.5-5.1); Sodium 141 mmol/L (136-145)
[2022-10-08] MEDS ORDERED: Potassium Chloride 20 MEQ TAB PO SCH ×2 (08:00→10:15)
[2022-10-08] MEDS: Aspirin Chewable 81 MG TAB PO SCH (09:24)
[2022-10-08] MEDS: Folic Acid 1 MG TAB PO SCH (09:24)
[2022-10-08] MEDS: Lisinopril 5 MG TAB PO SCH (09:24)
[2022-10-08] MEDS: Multivit, Therapeutic 1 TAB PO SCH (09:24)
[2022-10-08] MEDS: Famotidine 20 MG TAB PO SCH ×2 (09:25→20:33)
[2022-10-08] MEDS ORDERED: Amlodipine 10 MG TAB PO SCH (14:45)
[2022-10-08] MEDS: Atorvastatin Calcium 40 MG TAB PO SCH (20:33)
[2022-10-08] MEDS: Acetaminophen 325 MG TAB PO PRN (20:34)
[2022-10-08] MEDS ORDERED: Thiamine 100 MG TAB PO SCH (21:00)
[2022-10-08] MEDS ORDERED: Lorazepam 0.5 MG TAB PO PRN (23:27)
[2022-10-09 04:40] LABS: #Eosinphils 0.3 thou/uL (0.0-0.7); #Monocytes 0.8 thou/uL (0.11-0.59); #Neutrophils 4.1 thou/uL (1.40-6.50); %Basophils 0.6 % (0.0-1.0); %Eosinophils 4.8 % (0.0-10.0); %Lymphocytes 21.3 % (21.0-51.0); %Monocytes 11.3 % (0.0-10.0); %Neutrophils 61.7 % (42.0-75.0); Hemoglobin 14.3 g/dL (14.0-18.0); Mean Corpuscular HGB CONC 34.6 g/dL (32.0-36.0); Mean Corpuscular Hemoglobin 33.8 pg (27.0-31.0); Mean Corpuscular Volume 97.6 fl (78.0-98.0); Mean Platelet Volume 11.7 fL (7.4-10.4); Platelet Count 187 10x3/uL (130-400); RBC Distribution Width 12.1 % (11.5-14.5); Red Blood Cell (RBC) Count 4.23 mill/uL (4.70-6.10); White Blood Cell (WBC) Count 6.7 10x3/uL (4.8-10.8)
[2022-10-09] MEDS: Nitroglycerin 2% Ointment 1 INCH/1 GM Packet TOP SCH (05:19)
[2022-10-09 05:53] LABS: Chloride 101 mmol/L (98-107); Potassium 3.5 mmol/L (3.5-5.1); Sodium 133 mmol/L (136-145)
[2022-10-09 06:26] LABS: Anion Gap 16 mmol/L (10-20); BUN (Urea Nitrogen) 14 mg/dL (8.4-25.7); Calc. Creatinine Clearance 118 mL/min (70-130); Carbon Dioxide 20 mmol/L (22-29); Estimated GFR 108; Glucose 94 mg/dL (70-105)
[2022-10-09] MEDS: Multivit, Therapeutic 1 TAB PO SCH (07:44)
[2022-10-09] MEDS: Aspirin Chewable 81 MG TAB PO SCH (07:44)
[2022-10-09] MEDS: Lisinopril 5 MG TAB PO SCH (07:44)
[2022-10-09] MEDS: Famotidine 20 MG TAB PO SCH (07:45)
[2022-10-09] MEDS: Folic Acid 1 MG TAB PO SCH (07:45)
[2022-10-09] MEDS ORDERED: Potassium Chloride 20 MEQ TAB PO SCH (08:00)
[2022-10-09] MEDS ORDERED: Amlodipine 10 MG TAB PO SCH (09:00)
[2022-10-09 11:52] VITALS: BP 162/93; TEMP 97.4
== END 2022-10-09 14:02 | disposition home or self-care (01) | DRG 896 ==
LOC: ERS 20:35 → IMCU/EMU 22:32 → 2NO 10-08 10:12
PROVIDERS: ADMIT Student in an Organized Health Care Education/Training Program; ATTEND Internal Medicine
PROC: HZ2ZZZZ Detoxification Services for Substance Abuse Treatment (ICD-10-PCS; principal; 2022-10-07)
DX: F10.239 Alcohol dependence with withdrawal, unspecified (principal); I21.A1 Myocardial infarction type 2; R00.0 Tachycardia, unspecified; R26.81 Unsteadiness on feet; I10 Essential (primary) hypertension; E78.5 Hyperlipidemia, unspecified; R77.8 Other specified abnormalities of plasma proteins; E11.9 Type 2 diabetes mellitus without complications; Z79.899 Other long term (current) drug therapy; R07.89 Other chest pain
CPT/HCPCS: 36415; 71045; 71275; 80048; 80053; 80306; 80307; 82553; 83690; 83735; 84100; 84484; 85025; 93005; 93010; 93306; 96360; 96361; J0360; J1650; J3411; J3475; J3480; J7042; Q9967